=== PATIENT | female | born 1995 | race Two or more races ===

== ENCOUNTER 2021-07-05 21:42 | Observation (INO) | payer BC, OTHER ==
[~2021-07-05] VITALS: Ht 170.2 cm; Wt 97.1 kg
== END 2021-07-06 00:29 | disposition home or self-care (01) ==
LOC: UNDOADMOB 21:42 → LDRP 21:42 → UNDODISOB 07-06 00:29
PROVIDERS: ADMIT Obstetrics & Gynecology; ATTEND Obstetrics & Gynecology
DX: O62.9 Abnormality of forces of labor, unspecified (principal); O26.893 Other specified pregnancy related conditions, third trimester; R07.89 Other chest pain; R06.02 Shortness of breath; O21.2 Late vomiting of pregnancy; Z3A.28 28 weeks gestation of pregnancy
CPT/HCPCS: 59025; 76815; 81002; G0378

== ENCOUNTER 2021-07-06 00:44 | Emergency (ER) | payer BC ==
[~2021-07-06] VITALS: Ht 170.2 cm; Wt 97.1 kg
[2021-07-06 00:44] VITALS: BP 112/72
== END 2021-07-06 03:06 | disposition home or self-care (01) ==
LOC: ER 00:44
DX: O26.893 Other specified pregnancy related conditions, third trimester (principal); R10.13 Epigastric pain; Z3A.28 28 weeks gestation of pregnancy

== ENCOUNTER 2023-06-22 14:01 | Emergency (ER) | payer BC ==
[~2023-06-22] VITALS: Ht 170.2 cm; Wt 100.3 kg
[2023-06-22 15:13] VITALS: BP 115/66; PULSE 66; RESP 16; TEMP 98; O2SAT 94
[2023-06-22 16:14] LABS: Urine Bacteria FEW /hpf (None Seen); Urine Blood Negative /uL (Negative); Urine Clarity Clear (Clear); Urine Color Colorless (Yellow); Urine Protein, UAD Negative (Negative); Urine Specific Gravity 1.003 (1.001-1.035); Urine Urobilinogen Normal (Negative); Urine WBC <1 /hpf (0 - 5)
[2023-06-22] MEDS: KETOROLAC TROMETH 30 MG/ML 1ML VIAL IM ONE (16:56)
[2023-06-22] MEDS: methylPREDNISolone SOD SUCC 125 MG/2 ML VL IM ONE (16:56)
[2023-06-22] MEDS ORDERED: NAP500T PO (17:16)
== END 2023-06-22 17:24 | disposition home or self-care (01) ==
LOC: ER 14:01
DX: M54.59 Other low back pain (principal); Z79.899 Other long term (current) drug therapy
CPT/HCPCS: 81001; 81025; 96372; 99284; J1885; J2930